=== PATIENT | female | born 1990 ===

== ENCOUNTER 2021-11-08 15:52 | Emergency (ER) | payer SELFPAY ==
[~2021-11-08] VITALS: Ht 172.7 cm; Wt 63.6 kg
[2021-11-08 16:48] LABS: STREP SCREEN POSITIVE
[2021-11-08] MEDS ORDERED: PEN-VEE K500 MG PO (17:30)
[2021-11-08 17:50] VITALS: BP 104/71; PULSE 80; TEMP 98.9
== END 2021-11-08 18:00 | disposition home or self-care (01) ==
LOC: COL.ER 15:52
PROVIDERS: Physician Assistant
DX: J02.0 Streptococcal pharyngitis (principal); Z20.822 Contact with and (suspected) exposure to COVID-19; Z28.310 Unvaccinated for COVID-19
CPT/HCPCS: J1100; J1885; J7030